=== PATIENT | male | born 1995 | race Caucasian/White ===

== ENCOUNTER 2018-05-08 20:11 | Emergency (ER) | payer MEDICAID, OTHER ==
[~2018-05-08] VITALS: Ht 172.7 cm; Wt 83.9 kg
[2018-05-08 20:13] VITALS: BP 119/76
--- NOTE | 2018-05-08 20:40 | NUR ---
PT AMBULATED TO BED #9
--- NOTE | 2018-05-08 20:50 | NUR ---
C/O PINCHING R SIDED CP AND STATES IT IS WORSE WHEN HE TAKES A DEEP BREATH. REPORTS HAVING HAD THIS PROBLEM BEFORE, DX GERD. PT AOX4, REPORTS NAUSEA. HAS HAD A COUGH X3 MONTHS, GIVEN RX AMOXICILLIN 2 DAYS AGO. PATIENT VSS. ACTING APPROPRIATE. BED RAILS UP X1, BED IN LOW LOCKED POSITION. HX GERD, HTN RX OMEPRAZOLE THIS AM, LISINOPRIL (NONCOMPLIANT)
--- NOTE | 2018-05-08 21:18 | NUR ---
Dr. Garber evaluating patient at bedside.
[2018-05-08] MEDS ORDERED: KETOROLAC 30 MG/ML VIAL IM ONE (21:25)
--- NOTE | 2018-05-08 21:34 | NUR ---
XRAY AT BEDSIDE.
[2018-05-08 22:28] VITALS: BP 120/58
== END 2018-05-08 22:28 | disposition home or self-care (01) ==
LOC: MED 20:11
DX: M94.0 Chondrocostal junction syndrome [Tietze] (principal); K21.9 Gastro-esophageal reflux disease without esophagitis; F41.9 Anxiety disorder, unspecified; I10 Essential (primary) hypertension
CPT/HCPCS: 71045; 96372; 99283; J1885; Q0092